=== PATIENT | male | born 1975 | race Caucasian/White ===

== ENCOUNTER 2017-12-06 16:01 | Emergency (ER) | payer OTHER ==
--- NOTE | 2017-12-06 16:21 | PDOC ---
History of Present Illness - General Chief Complaint: Injury Stated Complaint: RIGHT SHOULDER PAIN Time Seen by Provider: 12/06/17 16:10 History Source: Patient Exam Limitations: No Limitations - History of Present Illness Initial Comments: 12/06/17 16:15 42y M presents with R shoulder pain, pt states he was lifiting weights when it happened. +priorhistory of R shoulder dislocation x 7 and has 2 prior shoulder surgeries pain is wors ein the R shoulder, no radiation pt denies any numbness/tingling/weakness no other injuries or pain. no fever/chills, n/v, cp, abd pain, back pain pt was evaluated at dr. garcia office, where he had an xray and attempted reduction, but was not successful due to pain and ptw as referred to the ER Past History - Past Medical History Allergies/Adverse Reactions: Allergies Allergy/AdvReac Type Severity Reaction Status Date / Time No Known Allergies Allergy Verified 12/06/17 16:02 Home Medications: Ambulatory Orders NK [No Known Home Medication] 08/29/15 - Suicide/Smoking/Psychosocial Hx Smoking History: Current every day smoker Have you smoked in the past 12 months: Yes Number of Cigarettes Smoked Daily: 10 'Breaking Loose' booklet given: 09/23/15 Hx Alcohol Use: No Drug/Substance Use Hx: No Substance Use Type: Alcohol Review of Systems - Review of Systems Able to Perform ROS?: Yes Comments:: 12/06/17 16:25 CONSTITUTIONAL: No reported: Fever, Chills, Diaphoresis, Generalized Weakness, Malaise, Loss of Appetite HEENT: No reported: Rhinorrhea, Nasal Congestion, Throat Pain, Throat Swelling, Difficulty Swallowing, Mouth Swelling, Ear Pain, Eye Pain, Visual Changes CARDIOVASCULAR: No reported: Chest Pain, Syncope, Palpitations, Irregular Heart Rate, Lightheadedness, Peripheral Edema RESPIRATORY: No reported: Cough, Shortness of Breath, SOB with Exertion, Orthopnea, Wheezing , Stridor, Hemoptysis GASTROINTESTINAL: No reported: Abdominal pain, Abdominal Distension, Nausea, Vomiting, Diarrhea, Constipation, Melena, Hematochezia GENITOURINARY: No reported: Dysuria, Frequency, Urgency, Hesitancy, Flank Pain, Genital Pain MUSCULOSKELETAL: +R shoulder pain No reported: Myalgia, Arthralgia, Joint Swelling, Back pain, Neck Pain SKIN: No reported: Rash, Itching, Pallor HEMEATOLOGIC/IMMUNOLOGIC: No reported: Easy Bleeding, Easy Bruising, Lymphadenopathy, Frequent infections ENDOCRINE: No reported: Unexplained Weight Gain, Unexplained Weight Loss, Heat Intolerance , Cold Intolerance NEUROLOGIC: No reported: Headache, Focal Weakness, Paresthesias, Vertigo, Lightheadedness, Unsteady Gait, Seizure, Mental Status Changes, Incontinence PSYCHIATRIC: No reported: Anxiety, Depression *Physical Exam - Physical Exam Comments: 12/06/17 16:25 GENERAL: The patient is awake, alert, and fully oriented, Nontoxic - in no acute distress. HEAD: Normocephalic, atraumatic. EYES: extraocular movements intact, sclera anicteric, conjunctiva clear. ENT: Normal voice, Moist mucous membranes. NECK: Normal range of motion, supple LUNGS: Breath sounds equal, clear to auscultation bilaterally. No wheezes, no rhonchi, no rales. HEART: Regular rate and rhythm, without murmur, rub or gallop. ABDOMEN: Soft, nontender, No guarding, no rebound.No CVA tenderness EXTREMITIES: mild ttp to R shoulder, assymetric R shoulder deformity, n/v intact in ue NEUROLOGICAL: No facial assymetry, Normal speech, PSYCH: Normal mood, normal affect. SKIN: Warm, Dry, normal turgor, Moderate Sedation - Pre-Procedure Assessment # 1 Joint Reduction Is this a Moderate (Conscious) sedation patient?: Yes Med/Surg Hx & PE performed: Yes Does the patient have a history of Obstructive Sleep Apnea: No Prior complications with sedation/analgesia: No NPO since (date): 12/06/17 NPO since (time): 12:00 Mallampati Score: I ASA Physical Status: Class I Consent obtained: Written Items checked for time out procedure: Patient identified using 2 identifiers, Allergies noted, Consent read, ED physician/[employer] MANAGER/PA/Resident identified, Patient position verified, All active procedure participants present from the beginning Sedation agent: Ketamine - Post Procedure Assessment Tolerated procedure well: Yes Was a reversal agent used?: No Patient evaluation: Awake, alert and oriented Printed Discharge Instructions given: Yes Procedures - Consent Consent obtained: Written - Joint Reduction Right Joint Reduction Site: right: Shoulder Pre-Procedure NV Exam: normal Conscious Sedation: Yes Reduction Attempts: 2 Procedure: Other (external rotation, traction) Post-Procedure NV Exam: normal Complications: No Post Joint Reduction Film: joint reduced Splint: No Immobilized: Yes Medical Decision Making - Medical Decision Making 12/06/17 16:26 pt with recurretn R shoulder dislcoation pt had xray at Dr. garcia office, will defer xray here will give propofol/ketamine for sedation 12/06/17 17:50 shoulder reduction - 2 attempts - initially attempt with 200mg of propofol, unabl eto acheive adaquate sedation second attempt with 90mg of ketamine and 90mg of propofol with success with aide of orthopedics 12/06/17 18:18 post reduction xray with shoulder in place will dc with sling and fu with dr. boyd on tuesday retur nprecautions were discussed *DC/Admit/Observation/Transfer Diagnosis at time of Disposition: Shoulder dislocation Qualifiers: Encounter type: initial encounter Laterality: right Qualified Code(s): S43.004A - Unspecified dislocation of right shoulder joint, initial encounter - Discharge Dispostion Disposition: HOME Condition at time of disposition: Stable Decision to Admit order: No - Referrals Referrals: Phillip Boyd MD [Staff Physician] - - Patient Instructions Printed Discharge Instructions: DI for Shoulder Dislocation, DI for Moderate Sedation Additional Instructions: Keep your arm in a sling. Follow up with dr. Boyd on tuesday return if you have any concerns. Print Language: [place] - Post Discharge Activity
[2017-12-06 16:30] VITALS: TEMP 98.2; BMI 25.7
[2017-12-06] MEDS ORDERED: PROPOFOL 20 ML ONE ×2 (16:34→17:33)
[2017-12-06] MEDS ORDERED: PROPOFOL 200 MG/20 ML VIAL IVPUSH ONE ×3 (17:00→18:20)
[2017-12-06] MEDS ORDERED: morphine CARPU-JECT 4 MG/1 ML DISP.SYRIN IVPUSH ONE (17:23)
[2017-12-06] MEDS ORDERED: morphine SULFATE 4 MG/ML VIAL ONE (17:23)
[2017-12-06] MEDS ORDERED: KETAMINE HCL 500 MG/10 ML VIAL ONE (17:30)
--- NOTE | 2017-12-06 17:58 | CONSULT ---
Consult Consult Specialty:: orthopedics Reason for Consultation:: Right shoulder dislocation - History of Present Illness History of Present Illness: 42y/o male c/o right shoulder pain which began earlier today. he states he was lifting weights when he felt a sudden pain in his shoulder. he has a history of several dislocations and had stabilization surgery for the shoulder about a year ago. he has not dislocated since the surgery. No other associated, aggravating or relieving factors. - History Source History Provided By: Patient, Medical Record - Alcohol/Substance Use Hx Alcohol Use: No - Smoking History Smoking history: Current every day smoker Have you smoked in the past 12 months: Yes Aproximately how many cigarettes per day: 10 Home Medications - Allergies Allergies/Adverse Reactions: Allergies Allergy/AdvReac Type Severity Reaction Status Date / Time No Known Allergies Allergy Verified 12/06/17 16:02 - Home Medications Home Medications: Ambulatory Orders NK [No Known Home Medication] 08/29/15 Review of Systems - Review of Systems Constitutional: reports: No Symptoms Eyes: reports: No Symptoms HENT: reports: No Symptoms Neck: reports: No Symptoms Cardiovascular: reports: No Symptoms Respiratory: reports: No Symptoms Gastrointestinal: reports: No Symptoms Genitourinary: reports: No Symptoms Breasts: reports: No Symptoms Reported Musculoskeletal: reports: Extremity Pain Integumentary: reports: No Symptoms Neurological: reports: No Symptoms Endocrine: reports: No Symptoms Hematology/Lymphatic: reports: No Symptoms Psychiatric: reports: No Symptoms Physical Exam Vital Signs: Vital Signs Temperature 98.2 F 12/06/17 16:02 Pulse Rate 84 12/06/17 16:59 Respiratory Rate 20 12/06/17 16:59 Blood Pressure 148/92 12/06/17 16:59 O2 Sat by Pulse Oximetry (%) 100 12/06/17 16:59 Constitutional: Yes: Well Nourished, No Distress, Calm HENT: Yes: Atraumatic, Normocephalic Imaging - Results X-ray: Image Reviewed (X-rays taken in office prior to ER visit shoulder anterior dislocation of shoulder) Assessment/Plan #1 Right shoulder anterior dislocation -Discussed today's findings and treatment options with the patient. We together decided to proceed with closed reduction. RBA discussed. He would like to proceed Reduction, right shoulder dislocation: The patient was placed in a supine position. The patient was then sedated by the ER staff. Once adequate anaesthesia was obtained a traction/counter traction maneuver was performed with the arm abducted and externally rotated. Gentle pressure was applied to the humeral head and a visible and palpable reduction was achieved. ROM was found to be smooth once reduction was completed. The patient was placed into a sling. Post reduction x-rays ordered and reviewed showed reduction of glenohumeral joint. NV exam intact post-reduction. The patient tolerated the procedure well. The procedure was performed under the direct supervision of Dr. Geovani Oliveira. -Follow up with Dr. hernandez within 1 week in office. Maintain sling. Activity restrictions discussed.
[2017-12-06] MEDS ORDERED: KETAMINE HCL 200 MG/20 ML VIAL IVPUSH ONE (18:20)
[2017-12-06 20:29] VITALS: BP 132/82; PULSE 96
== END 2017-12-06 19:33 | disposition home or self-care (01) ==
LOC: FER 16:01
PROC: 0RSJXZZ Reposition Right Shoulder Joint, External Approach (ICD-10-PCS; principal; 2017-12-06)
DX: S43.004A Unspecified dislocation of right shoulder joint, initial encounter (principal); F17.210 Nicotine dependence, cigarettes, uncomplicated; X58.XXXA Exposure to other specified factors, initial encounter; Y93.89 Activity, other specified; Y92.9 Unspecified place or not applicable
CPT/HCPCS: 73030-TC-RT-FY; 99282-25

== ENCOUNTER 2018-01-10 13:03 | Emergency (ER) | payer OTHER ==
[2018-01-10 13:13] VITALS: BMI 25.7
--- NOTE | 2018-01-10 13:13 | PDOC ---
History of Present Illness - General Chief Complaint: Pain, Acute Stated Complaint: RIGHT SHOULDER PAIN Time Seen by Provider: 01/10/18 13:07 - History of Present Illness Initial Comments: 01/10/18 13:09 42 yo M with h/o recurrent right shoulder dislocation x 10 who p/w R shoulder pain. Patient reports rolling over with his right shoulder to grab his phone and felt a pop of his right shoulder and immediate weakness, pressure/pulling sensation, and sharp pain. Consistent with prior R shoulder dislocation. Patient right hand dominant. Denies recent trauma to RUE. Patient with multiple R shoulder surgeries. Patient seen in [facility] Ed (12/06/17) with R shoulder dislocation. Attrempted manual reduction in ED with consious sedation Ketamine/Propofol, but unsuccesful. Shoulder was reduced by ortho. Patient denies N/V, F,C, CP, SOB, urinary complaints, abdominal pain, diarrhea, constipation, lightheadedness, weakness, sensory changes. PMHx: as noted above ROS: as noted Allergies: NKDA Orthopedist physician: Dr. Phillip Boyd Past History - Past Medical History Allergies/Adverse Reactions: Allergies Allergy/AdvReac Type Severity Reaction Status Date / Time No Known Allergies Allergy Verified 01/10/18 13:03 Home Medications: Ambulatory Orders NK [No Known Home Medication] 08/29/15 COPD: No - Suicide/Smoking/Psychosocial Hx Smoking History: Current every day smoker Have you smoked in the past 12 months: Yes Number of Cigarettes Smoked Daily: 10 'Breaking Loose' booklet given: 09/23/15 Hx Alcohol Use: No Drug/Substance Use Hx: No Substance Use Type: Alcohol Review of Systems - Review of Systems Comments:: 01/10/18 13:09 GENERAL/CONSTITUTIONAL: No fever or chills. No weakness. HEAD, EYES, EARS, NOSE AND THROAT: No change in vision. No ear pain or discharge. No sore throat. CARDIOVASCULAR: No chest pain or shortness of breath RESPIRATORY: No cough, wheezing, or hemoptysis. GASTROINTESTINAL: No nausea, vomiting, diarrhea or constipation. GENITOURINARY: No dysuria, frequency, or change in urination. MUSCULOSKELETAL: + Right shoulder pain. No neck or back pain. SKIN: No rash NEUROLOGIC: No headache, vertigo, loss of consciousness, or change in strength/ sensation. ENDOCRINE: No increased thirst. No abnormal weight change HEMATOLOGIC/LYMPHATIC: No anemia, easy bleeding, or history of blood clots. ALLERGIC/IMMUNOLOGIC: No hives or skin allergy. *Physical Exam - Physical Exam Comments: 01/10/18 13:10 GENERAL: Awake, alert, and fully oriented, in no acute distress HEAD: No signs of trauma, normocephalic, atraumatic EYES: PERRLA, EOMI, sclera anicteric, conjunctiva clear ENT: Hearing grossly normal, nares patent, oropharynx clear without exudates. Moist mucosa NECK: Normal ROM, supple, no lymphadenopathy, JVD, or masses LUNGS: No distress, speaks full sentences, clear to auscultation bilaterally HEART: Regular rate and rhythm, normal S1 and S2, no murmurs, rubs or gallops, peripheral pulses normal and equal bilaterally. EXTREMITIES : + Limb length discrepancy of right shoulder. Pain with passive and active rotation/movement of right shoulder. Decreased ROM of R shoulder. Absent bony ttp. Normal inspection, Normal range of motion, no edema. No clubbing or cyanosis. 2+ palpable and symmetric peripheral pulses throughout. NEUROLOGICAL: Cranial nerves II through XII grossly intact. Normal speech, normal gait, no focal sensorimotor deficits. SKIN: Warm, Dry, normal turgor, no rashes or lesions noted Moderate Sedation - Procedure Monitoring Vital Signs: 01/10/18 17:14 vitals stable, and wnl. BP 115/70, O2 100 RA, P 76, Temp 97.7 01/10/18 17:16 ASA: 1 Mallampati: 1 - Post Procedure Assessment Tolerated procedure well: Yes Complications [comment]: None. Patient tolerated 120 mg Ketamine, and 120 mg Propofol push doses. Was a reversal agent used?: No Patient evaluation: Awake, alert and oriented, Vital signs reviewed, Cardiopulmonary exam normal, Pain controlled Printed Discharge Instructions given: No Medical Decision Making - Medical Decision Making 01/10/18 13:15 42 yo M with h/o recurrent right shoulder dislocation who p/w acute R shoulder pain x 1 day. HR 108, vitals otherwise wnl, AF. RUE neurovascuarly intact. Possible dislocation of right shoulder. No evidence of axillary nerve injury. Sensation preserved over deltoid muscle. No evidence of arterial insufficiency, DVT, fracture, septic joint. Will provide analgesia, obtain plain radiograph, and attempt manual closed reduction in ED. Ed Course: R SHOULDER RAD 01/10/18 13:55 Morphine 4 mg IV 01/10/18 14:46 Right Shoulder RAD: Right shoulder anterior dislocation. No acute fracture seen at this time. Called Dr. Boyd , and contacted answering service. Awaiting call back [phone] 01/10/18 14:[address] Byod by Dr. Tan. 01/10/18 15:54 Jonathan. Good orthopedics to come to Ed. 01/10/18 16:03 ASA Score 1 Mallampati 1 consent obtained 01/10/18 16:24 Patient given 120 mg Ketamine, and 120 mg Propofol in ED on bedside closed reduction no complications. Patient observed post reduction/sedation. 01/10/18 18:39 Jhony Titus ambulating w/out difficultly, HDS, and A&Ox3. R shoulder in sling. Stable for d/c with return precautions. Agrees to f/u with ortho within 48 hours. *DC/Admit/Observation/Transfer Diagnosis at time of Disposition: Shoulder dislocation Qualifiers: Encounter type: initial encounter Laterality: right Qualified Code(s): S43.004A - Unspecified dislocation of right shoulder joint, initial encounter Shoulder dislocation, recurrent Qualifiers: Laterality: right Qualified Code(s): M24.411 - Recurrent dislocation, right shoulder - Discharge Dispostion Disposition: HOME Condition at time of disposition: Stable Decision to Admit order: No - Referrals Referrals: Phillip Boyd MD [Staff Physician] - - Patient Instructions Printed Discharge Instructions: DI for Shoulder Dislocation Additional Instructions: Please return to the emergency department with any new or worsening symptoms or concerns. Please follow up with orthopedics within 72 hours. - Post Discharge Activity - Attestations Physician Attestion: 01/10/18 13:10 I attest to the information provided in this note.
[2018-01-10 13:17] VITALS: TEMP 97.7
[2018-01-10] MEDS ORDERED: morphine CARPU-JECT 2 MG/1 ML DISP.SYRIN IVPUSH ONE (13:22)
[2018-01-10] MEDS ORDERED: morphine SULFATE 4 MG/ML VIAL ONE (13:34)
--- NOTE | 2018-01-10 13:51 | PDOC ---
Attending Attestation - Resident Resident Name: Brian Griggsson - ED Attending Attestation I have performed the following: I have examined & evaluated the patient, The case was reviewed & discussed with the resident, I agree w/resident's findings & plan, Exceptions are as noted - HPI HPI: 01/10/18 13:49 42y M hx of recurrent shoulder dislocations presents with shoulder dislcoation. Pt states he woke up this morning and reached over with his R arm to scrach his shoulder and dislocated his shoulder. pt has a history of frequent dislocations and is s/p shoulder surgery - has seen dr. Boyd in the past and is pending workup for repeat surgery. pt denies any numbness/tingling/waekness. no trauma/ falls. +R shoulder deformity pulses symmetric in radials sensation intact and symmetric in hands suspect recurrent shoulder dislocation will notify ortho due to prior history of difficult to reduce dislocations will obtain IV as pt will likely need procedural sedation - Physicial Exam PE: 01/10/18 18:46 britany willard - Medical Decision Making 01/10/18 16:30 pt was sedated with ketamine & propofol (approx 120mg of each) shoulde reduced by MICKEY green of dr. boyd service will obtain post reduction will observe pt post sedation 01/10/18 18:46 pt feeling better post reduction shoulder shows shoulder is reduced pt alert/oriatnted ambulating around will dc with ortho fu return precautionsw ere discussed
[2018-01-10] MEDS ORDERED: KETAMINE HCL 500 MG/10 ML VIAL ONE (15:00)
[2018-01-10] MEDS ORDERED: PROPOFOL 20 ML ONE (15:00)
[2018-01-10] MEDS ORDERED: SODIUM CHLORIDE 1,000 ML IV STA (16:03)
--- NOTE | 2018-01-10 16:33 | CONSULT ---
Consult Reason for Consultation:: Right shoulder - History of Present Illness Chief Complaint: Right shoulder dislocation History of Present Illness: 42y/o male with hx of recurrent right shoulder dislocations states he woke up a few hours ago and had pain in his right shoulder. He crossed his right arm across his body and felt the shoulder pop out. He presented to the ER and had x- rays which showed a anterior shoulder dislocation. - History Source History Provided By: Patient, Medical Record - Alcohol/Substance Use Hx Alcohol Use: No - Smoking History Smoking history: Current every day smoker Have you smoked in the past 12 months: Yes Aproximately how many cigarettes per day: 10 Home Medications - Allergies Allergies/Adverse Reactions: Allergies Allergy/AdvReac Type Severity Reaction Status Date / Time No Known Allergies Allergy Verified 01/10/18 13:03 - Home Medications Home Medications: Ambulatory Orders NK [No Known Home Medication] 08/29/15 Review of Systems - Review of Systems Constitutional: reports: No Symptoms Eyes: reports: No Symptoms HENT: reports: No Symptoms Neck: reports: No Symptoms Cardiovascular: reports: No Symptoms Respiratory: reports: No Symptoms Gastrointestinal: reports: No Symptoms Genitourinary: reports: No Symptoms Breasts: reports: No Symptoms Reported Musculoskeletal: reports: Extremity Pain Integumentary: reports: No Symptoms Neurological: reports: No Symptoms Endocrine: reports: No Symptoms Hematology/Lymphatic: reports: No Symptoms Psychiatric: reports: No Symptoms Physical Exam Vital Signs: Vital Signs Temperature 97.7 F 01/10/18 13:03 Pulse Rate 108 H 01/10/18 13:03 Respiratory Rate 18 01/10/18 13:03 Blood Pressure 109/71 01/10/18 13:03 O2 Sat by Pulse Oximetry (%) 97 01/10/18 13:03 Constitutional: Yes: Well Nourished, No Distress, Calm HENT: Yes: Atraumatic, Normocephalic Musculoskeletal: Yes: Other (Right shoudler: Deformity of the right shoulder consistant with anterior dislocation. Mild edema. No ecchymosis or erythema. No sign of infection. TTP along the anterior shoulder. NVID. Pain with motion) Assessment/Plan #1 Right shoulder anterior dislocation -Discussed today's findings and treatment options with the patient. I have recommended closed reduction of the right shoulder with anaesthesia. He would like to proceed. RBA discussed. Right shoulder reduction with sedation: The ER staff prepped the patient and administered anaesthetic. Once the patient was adequately sedated a traction/ counter traction technique was used to reduce the shoulder. A palpable reduction of the joint was felt and a sling was placed. The patient tolerated the procedure well. NV exam intact after reduction. This procedure was done under the direct supervision of Dr. Geovani Oliveira. -Recommended continued sling immobilization -He was recently seen by Dr. Boyd regarding surgical treatment for his recurrent dislocations and will f/u with him. -All questions answered. He will return to the ER if any problems.
[2018-01-10] MEDS ORDERED: KETAMINE HCL 200 MG/20 ML VIAL IVPUSH ONE (16:50)
[2018-01-10] MEDS ORDERED: PROPOFOL 200 MG/20 ML VIAL IVPUSH ONE (16:50)
[2018-01-10 18:25] VITALS: PULSE 77
[2018-01-10 20:11] VITALS: BP 123/70
== END 2018-01-10 18:59 | disposition home or self-care (01) ==
LOC: FER 13:03
PROC: 0RSJXZZ Reposition Right Shoulder Joint, External Approach (ICD-10-PCS; principal; 2018-01-10)
PROC: 3E0337Z Introduction of Electrolytic and Water Balance Substance into Peripheral Vein, Percutaneous Approach (ICD-10-PCS; 2018-01-10)
DX: S43.004A Unspecified dislocation of right shoulder joint, initial encounter (principal); M24.411 Recurrent dislocation, right shoulder; X58.XXXA Exposure to other specified factors, initial encounter; Y93.89 Activity, other specified; Y92.89 Other specified places as the place of occurrence of the external cause
CPT/HCPCS: 73030-TC-RT-FY; 99283-25; J7030

== ENCOUNTER 2018-01-18 13:51 | Emergency (ER) | payer OTHER ==
--- NOTE | 2018-01-18 13:55 | PDOC ---
History of Present Illness - General Chief Complaint: Pain, Acute Stated Complaint: r shl pain Time Seen by Provider: 01/18/18 13:54 History Source: Patient Exam Limitations: No Limitations - History of Present Illness Initial Comments: 01/18/18 13:58 42 year old male with PMH multiple shoulder dislocations (11+), Bankhart lesion , chronic hill sacs deformity presented to ED for right shoulder pain. He stated he awoke from sleep this morning with his right arm deformed, and when he was driving in the car from work, all the bumps in the road began to make his shoulder hurt. He denied numbness, tingling, inability to move fingers, cool extremity. He stated he feels that his symptoms today are similar to prior shoulder dislocations. Pt had a CT of his right upper extremity performed 12/23/17 that demonstrated interval development of 2-4mm osseous densities along the ventral aspect of the glenohumeral joint consistent with avulsion fracture fragments. development of small osseous bankart lesion is seen along the ventral inferior aspect of the glenoid rim. chronic hill sacs compression fracture along the posterolateral aspect of the humeral head. Ortho: Dr. Boyd Past History - Past Medical History Allergies/Adverse Reactions: Allergies Allergy/AdvReac Type Severity Reaction Status Date / Time No Known Allergies Allergy Verified 01/10/18 13:03 Home Medications: Ambulatory Orders NK [No Known Home Medication] 08/29/15 COPD: No - Suicide/Smoking/Psychosocial Hx Smoking History: Current every day smoker Have you smoked in the past 12 months: Yes Number of Cigarettes Smoked Daily: 10 'Breaking Loose' booklet given: 09/23/15 Hx Alcohol Use: No Drug/Substance Use Hx: No Substance Use Type: Alcohol Review of Systems - Review of Systems Able to Perform ROS?: Yes Comments:: 01/18/18 13:59 General: denied fever, chills, night sweats, generalized weakness. HEENT: denied sore throat, rhinorrhea, ear pain. Heart: denied chest pain, palpitations, syncope, lower extremity swelling, diaphoresis. Respiratory: denied shortness of breath, cough, sputum production, hemoptysis. Abdomen: denied abdominal pain, nausea, vomiting, diarrhea, constipation, blood in stool. : denied dysuria, increased urinary frequency, hematuria, urinary incontinence , flank pain. Back: denied back pain. Musculoskeletal: admitted to right shoulder pain. Neurological: denied headache, dizziness, numbness, tingling, weakness. Skin: denied rash, laceration, abrasion. *Physical Exam - Physical Exam Comments: 01/18/18 14:38 Constitutional: Well-nourished, Well-developed, appearing stated age. HEENT: head is normocephalic, atraumatic. EOMI. PERRLA. Neck: supple. Full ROM. Heart: regular rhythm. no murmurs, rubs or gallops. Lungs: clear to auscultation bilaterally. no crackles, rhonchi or wheezing. no stridor. Abdomen: soft, nontender. normal bowel sounds. no rebound, guarding, masses. Extremities: 2+ radial pulse bilaterally. full sensation to all fingers/forearm bilaterally. full movement of all fingers bilaterally. pt is holding his right arm in shoulder flexion, and is only able to further flex his shoulder, cannot do any other movements secondary to pain. Neurological: CN 2-12 grossly intact. Moves all four extremities. Psych: awake, alert, oriented x3. Follows commands. Answers questions appropriately. ED Treatment Course - LABORATORY CBC & Chemistry Diagram: 01/18/18 17:13 01/18/18 17:13 Medical Decision Making - Medical Decision Making 01/18/18 14:40 42 year old male with above PMH presented to ED for right shoulder pain. right arm is neurovascularly intact. Initial Vital Signs Temp Pulse Resp BP Pulse Ox 97.5 F L 98 H 17 120/84 98 01/18/18 13:52 01/18/18 13:52 01/18/18 13:52 01/18/18 13:52 01/18/18 13:52 XR right shoulder: anterior dislocation. Shoulder dislocation reduction was attempted with gentle downward traction without success. Ortho paged. 01/18/18 16:20 Shoulder reduction attempted by Dr. Lennon. The shoulder was reduced and then immediately dislocated again. Pending repeat XR. Pre-op labs, EKG and CXR ordered. 01/18/18 17:04 EKG performed at 1705: rate 78, regular rhythm, normal intervals, normal axis, no acute ST changes. 01/18/18 18:14 Dr. Lennon stated he is waiting on Dr. Boyd recommendation for surgery. Pending their recommendation. CBC WBC 8.1 K/mm3 (4.0-10.8) 01/18/18 17:13 RBC 4.65 M/mm3 (4.00-5.60) 01/18/18 17:13 Hgb 14.2 GM/dl (11.7-16.9) 01/18/18 17:13 Hct 43.2 % (35.4-49) 01/18/18 17:13 MCV 92.8 fl (80-96) 01/18/18 17:13 MCH 30.6 pg (25.7-33.7) 01/18/18 17:13 MCHC 32.9 g/dl (32.0-35.9) 01/18/18 17:13 RDW 12.6 % (11.9-15.9) 01/18/18 17:13 Plt Count 307 K/MM3 (134-434) 01/18/18 17:13 MPV 7.2 fl (7.5-11.1) L 01/18/18 17:13 Absolute Neuts (auto) 6.0 K/mm3 01/18/18 17:13 Neutrophils % 74.1 % (42.8-82.8) 01/18/18 17:13 Lymphocytes % 16.0 % (8-40) 01/18/18 17:13 Monocytes % 7.5 % (3.8-10.2) 01/18/18 17:13 Eosinophils % 1.7 % (0-4.5) 01/18/18 17:13 Basophils % 0.7 % (0-2.0) 01/18/18 17:13 BMP Sodium 135 mmol/L (136-145) L 01/18/18 17:13 Potassium 4.4 mmol/L (3.5-5.1) 01/18/18 17:13 Chloride 105 mmol/L (98-107) 01/18/18 17:13 Carbon Dioxide 25 mmol/L (22-28) 01/18/18 17:13 Anion Gap 5 MMOL/L (8-16) L 01/18/18 17:13 BUN 16 mg/dl (7-18) 01/18/18 17:13 Creatinine 0.8 mg/dl (0.6-1.3) 01/18/18 17:13 Creat Clearance w eGFR > 60 (>60) 01/18/18 17:13 Random Glucose 104 mg/dl (74-106) 01/18/18 17:13 Calcium 8.2 mg/dl (8.4-10.2) L 01/18/18 17:13 INR, PTT INR 1.05 (0.82-1.09) 01/18/18 17:13 01/18/18 19:06 Pt signed out to Dr. Al. *DC/Admit/Observation/Transfer Diagnosis at time of Disposition: Shoulder dislocation, recurrent Qualifiers: Laterality: right Qualified Code(s): M24.411 - Recurrent dislocation, right shoulder - Discharge Dispostion Disposition: HOME Condition at time of disposition: Stable - Referrals Referrals: Phillip Boyd MD [Staff Physician] - Call tomorrow - Patient Instructions Printed Discharge Instructions: DI for Shoulder Dislocation Additional Instructions: Keep shoulder immobilizer in place Call tomorrow a.m. to arrange follow-up within 24 hours Return to ER if you have any further shoulder pain/arm numbness - Post Discharge Activity
[2018-01-18 13:56] VITALS: BMI 23.7
[2018-01-18 13:59] VITALS: TEMP 97.5
--- NOTE | 2018-01-18 15:49 | PDOC ---
Attending Attestation - Resident Resident Name: Clotilde Leal - ED Attending Attestation I have performed the following: I have examined & evaluated the patient, The case was reviewed & discussed with the resident, I agree w/resident's findings & plan, Exceptions are as noted - HPI HPI: 01/18/18 15:46 Patient with recurrent shoulder dislocations on the right, multiple surgeries, well-developed in bed and suffered a recurrent dislocation. Pain in the shoulder. Numbness and tingling of the brachial region. - Physicial Exam PE: 01/18/18 15:47 Examination reveals a characteristic deformity of an anterior shoulder dislocation. Pulses are full. No demonstrable so sensory deficit in the right upper extremity. - Medical Decision Making 01/18/18 15:47 Assessment: Recurrent right shoulder dislocation Plan: X-ray reveals typical anterior shoulder dislocation. There is no fracture identified. Attempt to relocate the shoulder was unsuccessful. Orthopedic consultation was called. Prior surgery was performed by Dr. Boyd, and he was contacted by phone. One of the practitioners in his orthopedic practice will see and evaluate the patient in the emergency room. 01/18/18 17:15 Dr. guan attempted to reduce the shoulder under conscious sedation with Versed and fentanyl. However, this was unsuccessful. Patient will need reduction under anesthesia. 01/18/18 18:57 Dr. Jorgensen, who performed surgery on the patient's shoulder, present in the ER. He would like to attempt reduction again under conscious sedation with propofol Procedure note: Conscious sedation with propofol With the patient appropriately monitored and oxygen by nasal cannula, 125 mg of propofol was administered intravenously, with temporary loss of consciousness and good muscle relaxation. The shoulder was reduced with quite a bit of effort by Dr. Boyd, with the patient maintaining his oxygen saturation at 99-100% and the remainder of his vital signs remaining stable. He awakened soon afterwards, with the shoulder reduced, and with no pain. Postreduction film showed good position. Immobilized with the arm resting against the chest and to follow-up with Dr. Boyd.
[2018-01-18] MEDS ORDERED: MIDAZOLAM HCL 2 MG/2 ML SINGLE DOSE VIAL ONE (15:59)
[2018-01-18] MEDS ORDERED: MIDAZOLAM HCL 2 MG/2 ML SINGLE DOSE VIAL IVPUSH ONE ×3 (17:04→17:17)
[2018-01-18] MEDS ORDERED: SODIUM CHLORIDE 1,000 ML IV STA (17:18)
[2018-01-18 17:29] LABS: BASO % 0.7 % (0-2.0); EOS % 1.7 % (0-4.5); HEMATOCRIT 43.2 % (35.4-49); HEMOGLOBIN 14.2 GM/dl (11.7-16.9); MCH 30.6 pg (25.7-33.7); MCHC 32.9 g/dl (32.0-35.9); MEAN CELL VOLUME 92.8 fl (80-96); MEAN PLT VOLUME 7.2 fl (7.5-11.1); MONO % 7.5 % (3.8-10.2); NEUT % 74.1 % (42.8-82.8); PLATELET COUNT 307 K/MM3 (134-434); RBC 4.65 M/mm3 (4.00-5.60); RDW 12.6 % (11.9-15.9); WHITE BLOOD COUNT 8.1 K/mm3 (4.0-10.8)
[2018-01-18 17:41] LABS: ANION GAP 5 MMOL/L (8-16); BLOOD UREA NITROGEN 16 mg/dl (7-18); CALCIUM 8.2 mg/dl (8.4-10.2); CHLORIDE 105 mmol/L (98-107); CO2 25 mmol/L (22-28); CREATININE 0.8 mg/dl (0.6-1.3); GLUCOSE,RANDOM 104 mg/dl (74-106); POTASSIUM 4.4 mmol/L (3.5-5.1); SODIUM 135 mmol/L (136-145)
[2018-01-18 17:42] LABS: ACTIVATED PTT 33.7 SECONDS (25.2-36.5)
[2018-01-18 17:47] LABS: INR 1.05 (0.82-1.09); PROTHROMBIN TIME (PATIENT) 11.7 SEC (10.2-13.0)
[2018-01-18] MEDS ORDERED: PROPOFOL 20 ML ONE (18:32)
[2018-01-18] MEDS ORDERED: PROPOFOL 200 MG/20 ML VIAL IVPUSH ONE (18:55)
--- NOTE | 2018-01-18 19:54 | PDOC ---
*Physical Exam - Vital Signs Last Vital Signs Temp Pulse Resp BP Pulse Ox 97.5 F L 65 14 132/95 100 01/18/18 13:52 01/18/18 19:41 01/18/18 19:41 01/18/18 19:41 01/18/18 19:41 ED Treatment Course - LABORATORY CBC & Chemistry Diagram: 01/18/18 17:13 01/18/18 17:13 - ADDITIONAL ORDERS Additional order review: Laboratory Results 01/18/18 01/18/18 17:13 17:13 PT with INR 11.7 INR 1.05 PTT (Actin FS) 33.7 Sodium 135 L Potassium 4.4 Chloride 105 Carbon Dioxide 25 Anion Gap 5 L BUN 16 Creatinine 0.8 Creat Clearance w eGFR > 60 Random Glucose 104 Calcium 8.2 L 01/18/18 17:13 RBC 4.65 MCV 92.8 MCHC 32.9 RDW 12.6 MPV 7.2 L Neutrophils % 74.1 Lymphocytes % 16.0 Monocytes % 7.5 Eosinophils % 1.7 Basophils % 0.7 - Medications Given in the ED: ED Medications Discontinued Medications Generic Name Dose Route Start Last Admin Trade Name Mikeq PRN Reason Stop Dose Admin Fentanyl 100 mcg 01/18/18 17:03 01/18/18 16:02 Sublimaze Injection - IVPUSH 01/18/18 17:04 100 mcg ONCE ONE Administration Fentanyl 100 mcg 01/18/18 17:04 01/18/18 16:07 Sublimaze Injection - IVPUSH 01/18/18 17:05 100 mcg ONCE ONE Administration Sodium Chloride 1,000 mls @ 1,000 mls/hr 01/18/18 17:18 01/18/18 17:24 Normal Saline - IV 01/18/18 18:17 1,000 mls/hr ASDIR STA Administration Midazolam HCl 2 mg 01/18/18 17:04 01/18/18 16:02 Versed - IVPUSH 01/18/18 17:05 2 mg ONCE ONE Administration Midazolam HCl 2 mg 01/18/18 17:05 01/18/18 16:07 Versed - IVPUSH 01/18/18 17:06 2 mg ONCE ONE Administration Midazolam HCl 2 mg 01/18/18 17:17 01/18/18 16:13 Versed - IVPUSH 12/05/18 17:18 2 mg ONCE ONE Administration Propofol 125,000 mcg 01/18/18 18:55 01/18/18 18:36 Diprivan - IVPUSH 01/18/18 18:56 125,000 mcg ONCE ONE Administration Medical Decision Making - Medical Decision Making Care of this patient receives from . Patient is s/p right shoulder dislocation reduction after conscious sedation. He is alert and without complaints and has been able to ambulate without difficulty. He will be discharged with follow-up with Dr. Boyd tomorrow. *DC/Admit/Observation/Transfer Diagnosis at time of Disposition: Shoulder dislocation, recurrent Qualifiers: Laterality: right Qualified Code(s): M24.411 - Recurrent dislocation, right shoulder - Discharge Dispostion Disposition: HOME Condition at time of disposition: Stable - Referrals Referrals: Phillip Boyd MD [Staff Physician] - Call tomorrow - Patient Instructions Printed Discharge Instructions: DI for Shoulder Dislocation Additional Instructions: Keep shoulder immobilizer in place Call tomorrow a.m. to arrange follow-up within 24 hours Return to ER if you have any further shoulder pain/arm numbness - Post Discharge Activity
[2018-01-18 20:12] VITALS: BP 132/95; PULSE 65
--- NOTE | 2018-01-19 10:30 | EKG ---
Test Reason : Blood Pressure : / mmHG Vent. Rate : 078 BPM Atrial Rate : 078 BPM P-R Int : 172 ms QRS Dur : 088 ms QT Int : 390 ms P-R-T Axes : 052 076 061 degrees QTc Int : 444 ms NORMAL SINUS RHYTHM NORMAL ECG NO PREVIOUS ECGS AVAILABLE Confirmed by MELINA AMES MD ([id number]) on 01/19/2018 10:30:02 AM Referred By: MD HEREDIA Confirmed By:MELINA AMES MD
== END 2018-01-18 20:17 | disposition home or self-care (01) ==
LOC: FER 13:51
PROC: 0RSJXZZ Reposition Right Shoulder Joint, External Approach (ICD-10-PCS; principal; 2018-01-18)
DX: M24.411 Recurrent dislocation, right shoulder (principal); X58.XXXA Exposure to other specified factors, initial encounter; Y93.89 Activity, other specified; Y92.89 Other specified places as the place of occurrence of the external cause; F17.210 Nicotine dependence, cigarettes, uncomplicated
CPT/HCPCS: 36415; 71045-TC-FY; 73030-TC-RT-FY; 80048; 85025; 85610; 85730; 86850; 86900; 86901; 93005; 99284-25; J7030